=== PATIENT | male | born 1960 ===

== ENCOUNTER 2016-10-16 07:05 | Inpatient (IN) | payer MEDICAID ==
--- NOTE | 2016-10-16 08:32 | ED PDOC ---
Lower Extremity Pain/Injury Time Seen by Provider: 10/16/16 07:18 Chief Complaint (Nursing): Hip Pain Chief Complaint (Provider): Hip Pain History Per: Patient History/Exam Limitations: no limitations Onset/Duration Of Symptoms: Days Current Symptoms Are (Timing): Still Present Severity: Moderate Additional Complaint(s): Patient is a 56 year old male who presents to ED for left hip pain s/p fall 2 months ago. Patient reports taking diclofenac with mild relief. Pain is noted to be worse with ambulation. Denies any new injury. Past Medical History Reviewed: Historical Data, Nursing Documentation, Vital Signs Vital Signs: Last Vital Signs Temp 98.4 F 10/16/16 07:14 Pulse 95 H 10/16/16 07:14 Resp 16 10/16/16 07:14 BP 162/100 H 10/16/16 07:14 Pulse Ox 98 10/16/16 07:14 - Medical History PMH: HTN, Hypothyroidism - Surgical History Other surgeries: Bilateral knee - Family History Family History: States: No Known Family Hx - Living Arrangements Living Arrangements: With Family - Home Medications Home Medications: Ambulatory Orders Medication Instructions Recorded Levothyroxine [Synthroid] 125 mcg PO DAILY 10/16/16 Rosuvastatin Calcium [Crestor] 10 mg PO DAILY 10/16/16 Acetaminophen [Tylenol 325mg tab] 650 mg PO Q6 PRN tab 10/18/16 Aspirin [Ecotrin] 81 mg PO BID #60 tablet. 10/18/16 Docusate [Colace] 100 mg PO BID #30 cap 10/18/16 Ferrous Sulfate [Feosol] 325 mg PO DAILY #30 tab 10/18/16 oxyCODONE/Acetaminophen [Percocet 1 tab PO Q4 PRN #30 tab 10/18/16 5/325 mg Tab] - Allergies Allergies/Adverse Reactions: Allergies Allergy/AdvReac Type Severity Reaction Status Date / Time No Known Allergies Allergy Verified 10/16/16 07:17 Review of Systems ROS Statement: Except As Marked, All Systems Reviewed And Found Negative Constitutional: Negative for: Fever Respiratory: Negative for: Shortness of Breath Musculoskeletal: Positive for: Other ((+) left hip pain ). Negative for: Leg Pain, Foot Pain Neurological: Negative for: Weakness, Numbness Physical Exam - Reviewed Nursing Documentation Reviewed: Yes Vital Signs Reviewed: Yes - Physical Exam Appears: Positive for: Non-toxic, No Acute Distress Skin: Positive for: Normal Color, Warm Eye Exam: Positive for: Normal appearance Neck: Positive for: Normal, Painless ROM Cardiovascular/Chest: Positive for: Regular Rate, Rhythm. Negative for: Murmur Respiratory: Positive for: Normal Breath Sounds. Negative for: Respiratory Distress Extremity: Positive for: Capillary Refill (less than 2 seconds), Other ( Tenderness to left anterior lateral hip (+) decreased ROM secondary to pain. Neurovascularly intact ). Negative for: Deformity Neurologic/Psych: Positive for: Alert, Oriented - Laboratory Results Result Diagrams: 10/17/16 06:30 10/17/16 06:30 - ECG O2 Sat by Pulse Oximetry: 98 (RA) Pulse Ox Interpretation: Normal Medical Decision Making Medical Decision Making: Time: 0800 Initial impression: Hip injury r/o fracture Initial plan: -- CMP -- CBC -- PT/PTT -- Femur Xray and Hip Xray Scribe Attestation: Documented by Zahira Evans acting as a scribe for Gayle Diez MD MD Scribe Attestation: All medical record entries made by the Scribe were at my direction and personally dictated by me. I have reviewed the chart and agree that the record accurately reflects my personal performance of the history, physical exam, medical decision making, and the department course for this patient. I have also personally directed, reviewed, and agree with the discharge instructions and disposition. Disposition - Clinical Impression Clinical Impression: Hip pain - Patient ED Disposition Is Patient to be Admitted: Yes - Disposition Disposition Time: 09:26 Condition: STABLE - Pt Status Changed To: Hospital Disposition Of: Inpatient - Admit Certification Admit to Inpatient:: After my assessment, the patient will require hospitalization for at least two midnights. This is because of the severity of symptoms shown, intensity of services needed, and/or the medical risk in this patient being treated as an outpatient. - POA Present On Arrival: Falls Or Trauma
[2016-10-16 08:57] LABS: BASO # 0.1 K/uL (0.0-0.2); BASO % 0.8 % (0.0-2.0); EOS # 0.1 K/uL (0.0-0.7); EOS % 1.7 % (0.0-4.0); HEMATOCRIT 42.3 % (35.0-51.0); LYMPH # 1.7 K/uL (1.0-4.3); LYMPH % 20.2 % (20.0-40.0); MEAN CELL VOLUME 90.3 fl (80.0-94.0); MEAN CORPUSCULAR HEMOGLOBIN 30.6 pg (27.0-31.0); MEAN CORPUSCULAR HGB CONC 33.9 g/dL (33.0-37.0); MEAN PLATELET VOLUME 8.5 fl (7.2-11.7); MONO # 0.7 K/uL (0.0-0.8); NEUT # 5.8 K/uL (1.8-7.0); NEUT % 69.3 % (50.0-75.0); NRBC % 0.1 % (0.0-0.0); RED CELL DISTRIBUTION WIDTH 13.4 % (11.5-14.5); WHITE BLOOD COUNT 8.3 K/uL (4.8-10.8)
[2016-10-16 09:08] LABS: ALB/GLOB RATIO 1.6 (1.0-2.1); ALKALINE PHOSPHATASE 91 U/L (38-126); ALT/SGPT 60 U/L (21-72); AST/SGOT 32 U/L (17-59); BILIRUBIN,TOTAL 0.5 mg/dl (0.2-1.3); BLOOD UREA NITROGEN 19 mg/dl (9-20); CALCIUM 9.3 mg/dL (8.4-10.2); CARBON DIOXIDE 28 mmol/L (22-30); CHLORIDE 100 mmol/L (98-107); GFR AFRICAN-AMERICAN > 60; GLUCOSE,RANDOM 98 mg/dL (75-110); POTASSIUM 4.1 MMOL/L (3.6-5.0); SODIUM 140 mmol/l (132-148); TOTAL PROTEIN 7.5 G/DL (6.3-8.2)
--- NOTE | 2016-10-16 09:09 | CP.PCM.HP ---
History of Present Illness - History of Present Illness History of Present Illness: 56 y/o male with PMH HTN, dyslipidemia,hypothyroid presented to ER with intractable left hip pain. As per patient he has been suffering of progressive left hip pain for almost 1 year. He did experience a fall to that hip 1 month ago and since then the pain has gotten worse and today he could not ambulate because of the pain and decided to come to ER. He has had outpatient physical therapy and joint injection sin the past to that hip with minimal relief. Left hip Xray showed severe OA to left hip . denies any CP, SOB, palpitations. PND, orthopnea, urinary sx, changes in bowel movements, fever, chills, cough, nausea or vomiting . Allergies ; NKDA PMH; HTN, Hypothyroid, dyslipidemia Medications; See med rec Surgery : Bilateral knee surgeries and umbilical hernia repair Social history ; Lives in [facility] with [facility], does not work, ex smoker quit 15 years ago, does not drink or uses any drugs, has 3 steps going into the apartment, walking with no assist devices prioro family history ; None ROS ; 14 point review of all systems negative except for above PMD ; Code status : Full Present on Admission - Present on Admission Any Indicators Present on Admission: No Review of Systems - Review of Systems All systems: reviewed and no additional remarkable complaints except Past Patient History - Infectious Disease Hx of Infectious Diseases: None - Tetanus Immunizations Tetanus Immunization: Unknown - Past Medical History & Family History Past Medical History?: Yes Past Family History: Reviewed and not pertinent - Past Social History Smoking Status: Former Smoker Chewing Tobacco Use: No Cigar Use: No Alcohol: None Drugs: Denies Home Situation {Lives}: With Family Domestic Violence: Negative - CARDIAC Hx Hypertension: Yes - PULMONARY Hx Respiratory Disorders: No - NEUROLOGICAL Hx Neurological Disorder: No - HEENT Hx HEENT Problems: No - RENAL Hx Chronic Kidney Disease: No - ENDOCRINE/METABOLIC Hx Hypothyroidism: Yes - HEMATOLOGICAL/ONCOLOGICAL Hx Blood Disorders: No - INTEGUMENTARY Hx Dermatological Problems: No - MUSCULOSKELETAL/RHEUMATOLOGICAL Hx Osteoarthritis: Yes Hx Unsteady Gait: Yes - GASTROINTESTINAL Hx Gastrointestinal Disorders: No - PSYCHIATRIC Hx Psychophysiologic Disorder: No Hx Substance Use: No - SURGICAL HISTORY Hx Surgeries: Yes Hx Herniorrhaphy: Yes (abdominal hernia repair) Other/Comment: magdaleno knee SX - ANESTHESIA Hx Anesthesia: Yes Hx Anesthesia Reactions: No Meds Allergies/Adverse Reactions: Allergies Allergy/AdvReac Type Severity Reaction Status Date / Time No Known Allergies Allergy Verified 10/16/16 07:17 Physical Exam - Constitutional Appears: Non-toxic, No Acute Distress - Head Exam Head Exam: ATRAUMATIC, NORMAL INSPECTION, NORMOCEPHALIC - Eye Exam Eye Exam: EOMI, Normal appearance, PERRL Pupil Exam: NORMAL ACCOMODATION - ENT Exam ENT Exam: Mucous Membranes Moist - Neck Exam Neck exam: Positive for: Full Rom, Normal Inspection - Respiratory Exam Respiratory Exam: Clear to Auscultation Bilateral, NORMAL BREATHING PATTERN. absent: Rales, Rhonchi, Wheezes - Cardiovascular Exam Cardiovascular Exam: REGULAR RHYTHM, RRR, +S1, +S2. absent: JVD - GI/Abdominal Exam GI & Abdominal Exam: Normal Bowel Sounds, Soft. absent: Distended, Guarding, Rebound, Tenderness - Rectal Exam Rectal Exam: Deferred - Extremities Exam Extremities exam: Positive for: normal capillary refill, normal inspection, pedal edema (1 +), pedal pulses present. Negative for: calf tenderness Additional comments: left hip decreased ROM due to pain - Back Exam Back exam: NORMAL INSPECTION - Neurological Exam Neurological exam: Alert, CN II-XII Intact, Oriented x3, Reflexes Normal - Psychiatric Exam Psychiatric exam: Normal Affect, Normal Mood - Skin Skin Exam: Dry, Intact, Normal Color, Warm Results - Vital Signs Recent Vital Signs: Last Vital Signs Temp 98.4 F 10/16/16 07:14 Pulse 95 H 10/16/16 07:14 Resp 16 10/16/16 07:14 BP 162/100 H 10/16/16 07:14 Pulse Ox 98 10/16/16 08:35 - Labs Result Diagrams: 10/16/16 08:50 10/16/16 08:50 Labs: Laboratory Results - last 24 hr 10/16/16 08:50 WBC 8.3 RBC 4.68 Hgb 14.3 Hct 42.3 MCV 90.3 MCH 30.6 MCHC 33.9 RDW 13.4 Plt Count 167 MPV 8.5 Neut % (Auto) 69.3 Lymph % (Auto) 20.2 [place] % (Auto) 8.0 Eos % (Auto) 1.7 Baso % (Auto) 0.8 Neut # 5.8 Lymph # 1.7 [place] # 0.7 Eos # 0.1 Baso # 0.1 - EKG Data EKG shows normal: Sinus rhythm Rate: Normal - Imaging and Cardiology pelvis xray Additional comment: severe OA to left hip ( as read by me ) Assessment & Plan - Assessment and Plan (Free Text) Assessment: 56 y/o male with PMH HTN, dyslipidemia,hypothyroid presented to ER with intractable left hip pain. As per patient he has been suffering of progressive left hip pain for almost 1 year. He did experience a fall to that hip 1 month ago and since then the pain has gotten worse and today he could not ambulate because of the pain and decided to come to ER. He has had outpatient physical therapy and joint injection sin the past to that hip with minimal relief. Left hip Xray showed severe OA to left hip 1. Left hip osteoarthritis with intractable pain- unable to ambulate Admit patient to med-surg Ortho consult with Dr. Alvarenga EKG, CBC, CMP reviewed patient is low risk for surgical procedure Keep NPO for now ( last meal was yesterday 7 PM ) 2. HTN resume ho me meds controlled 3. Hypothyroidism on synthroid 4. Dyslipidemia on crestor 5. DVt Prophylaxis SCD for now
[2016-10-16 09:25] LABS: PARTIAL THROMBOPLASTIN TIME 26.8 SECONDS (23.3-32.5)
[2016-10-16 09:55] LABS: RBC URINE < 1 /hpf (0-3); URINE BILIRUBIN NEGATIVE (NEGATIVE); URINE BLOOD NEGATIVE (NEGATIVE); URINE COLOR STRAW (YELLOW); URINE GLUCOSE (UA) NEG (Normal); URINE KETONE NEGATIVE (NEGATIVE); URINE LEUKOCYTE ESTERASE NEG Leu/uL (Negative); URINE PROTEIN NEGATIVE (NEGATIVE); URINE UROBILINOGEN 0.2-1.0 mg/dL (0.2-1.0)
[2016-10-16] MEDS ORDERED: Propofol 10 mg/ml Inj (20 ML) ONE (10:00)
[2016-10-16] MEDS ORDERED: Midazolam 2 MG/2 ML VIAL ONE (10:01)
[2016-10-16] MEDS ORDERED: Morphine 1 mg/ml preservative-free Inj(Duramorph) ONE (10:01)
[2016-10-16] MEDS ORDERED: Lidocaine Hydrochloride 5 ML INJ ONE (10:01)
[2016-10-16] MEDS ORDERED: Rocuronium 10 mg/ml (5 ml) ONE ×3 (10:02→14:27)
[2016-10-16] MEDS ORDERED: Sodium Chloride 0.9% 1,000 ML IV SCH (10:15)
[2016-10-16] MEDS ORDERED: Lactated Ringer's 1,000 ML IV ONE ×4 (10:30→17:35)
[2016-10-16] MEDS ORDERED: ePHEDrine 50 mg/ml Inj ONE (10:35)
[2016-10-16] MEDS ORDERED: Succinylcholine 200 mg/10 ml Inj IV ONE (10:43)
--- NOTE | 2016-10-16 10:56 | RAD ---
PROCEDURE: Left femur dated 10/16/2016 HISTORY: Fall COMPARISON: Comparison made with concurrent radiographs of the pelvis and left hip TECHNIQUE: AP and lateral views of the left femur performed FINDINGS: Current study reveals deformity of the left humeral head likely which is flattened along its superior border associated with superior joint space narrowing and subchondral cystic changes and sclerosis. Similar changes noted along the acetabular margin as well. Collectively these findings probably represent avascular necrosis and secondary significant degenerative osteoarthritis. . No evidence of acute displaced fracture nor dislocation. IMPRESSION: Severe DJD left hip with deformity - flattening of the superior margin of the left femoral head. No evidence of acute displaced fracture nor dislocation.
--- NOTE | 2016-10-16 10:56 | RAD ---
HISTORY: for OR COMPARISON: No prior. FINDINGS: LUNGS: Poor inspiration with low lung volumes, mild crowded bronchovascular markings and mild bibasilar atelectasis. PLEURA: No significant pleural effusion identified, no pneumothorax apparent. CARDIOVASCULAR: Heart size upper limits of normal likely due to a combination of AP positioning (with magnification) and low lung volumes. OSSEOUS STRUCTURES: No significant abnormalities. VISUALIZED UPPER ABDOMEN: Normal. OTHER FINDINGS: None. IMPRESSION: Poor inspiration with low lung volumes, mild crowded bronchovascular markings and mild bibasilar atelectasis.
[2016-10-16] MEDS ORDERED: Sodium Chloride 0.9% 1,000 ML IV ONE (11:00)
--- NOTE | 2016-10-16 11:01 | RAD ---
PROCEDURE: Pelvis left hip 10/16/2016. HISTORY: Fall COMPARISON: Correlation made with concurrent radiographs of the left femur. FINDINGS: BONES: No evidence of acute displaced fracture nor dislocation. Re- demonstrated is deformity of the left femoral head which is flattened along its superior border associated with superior joint space narrowing and subchondral cystic changes/ sclerosis. Is similar on subchondral sclerosis and cystic changes noted along the acetabular margin as well. 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 JOINTS: As above. . The right femoral head is properly located. Arthritic changes right hip joint. SOFT TISSUES: Calcific densities overlying the pelvis likely represent calcified pelvic phleboliths. OTHER FINDINGS: Mild degenerative spondylosis of the lumbosacral spine. IMPRESSION: Deformity of the left femoral head which is flattened along its superior border associated with superior joint space narrowing and subchondral cystic changes/ sclerosis. Is similar on subchondral sclerosis and cystic changes noted along the acetabular margin as well. 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 . See above discussion for additional findings and details.
[2016-10-16] MEDS ORDERED: Sodium Chloride 0.9% 200 ML IV ONE (11:30)
[2016-10-16] MEDS ORDERED: SODIUM CHLORIDE 3,000 ML IR ONE (12:30)
[2016-10-16] MEDS ORDERED: Sodium Chloride 0.9% 500 ML IV ONE (13:00)
[2016-10-16] MEDS ORDERED: Neostigmine Methylsulfate 2 MG/2 ML ML IV ONE (13:49)
[2016-10-16] MEDS ORDERED: Neostigmine Methylsulfate 3mg/3ml Syringe IV ONE (13:49)
[2016-10-16] MEDS ORDERED: HYDROmorphone 0.5 mg/0.5 ml ISec IVP PRN (15:43)
[2016-10-16] MEDS: HYDROmorphone 0.5 mg/0.5 ml ISec IVP PRN ×3 (15:52→16:10)
--- NOTE | 2016-10-16 15:53 | RAD ---
PROCEDURE: Intraoperative Fluoroscopy. HISTORY: LEFT HIP FINDINGS: Fluoroscopic assistance was provided. 22.6 seconds of fluoroscopy time utilized during this procedure. Radiation dose = 4.97 mGy Please refer to the operative report for additional details
--- NOTE | 2016-10-16 16:33 | RAD ---
PROCEDURE: Left Hip X-ray Radiographs. HISTORY: s/p Left THR COMPARISON: None. FINDINGS: BONES: Normal. No fracture. Status post total left hip replacement in good anatomical position. JOINTS: Normal. SOFT TISSUES: Normal. OTHER FINDINGS: None. IMPRESSION: Status post left total hip replacement.
--- NOTE | 2016-10-16 16:56 | PCM.SURG1 ---
Surgeon's Initial Post Op Note - Surgeon's Notes Surgeon: Kumar Underwriting Specialist: IMTIAZ Bennett/ 2nd assist alla rosas Type of Anesthesia: General Endo, Spinal Anesthesia Administered By: Dr Noa Renteria Pre-Operative Diagnosis: Severe DJD/ OA L hip Operative Findings: Severe DJD/ OA Lhip. Subluxation l femoral head Post-Operative Diagnosis: as above Operation Performed: L THR- anterior approach. femoral neck osteotomy. arthrotomy/synovectomy. release iliopsoas tendon. autograft bone graft to acetabulum Specimen/Specimens Removed: femoral head/reamings Estimated Blood Loss: EBL {In ML}: 325 Blood Products Given: N/A Drains Used: No Drains Post-Op Condition: Good Date of Surgery/Procedure: 10/16/16 Time of Surgery/Procedure: 11:55 (time in room/anesthesia indcutioin time 10:30)
[2016-10-16] MEDS: ceFAZolin 1 GM in Sodium Chloride 0.9% 100 ML IVPB SCH (19:09)
[2016-10-17] MEDS: ceFAZolin 1 GM in Sodium Chloride 0.9% 100 ML IVPB SCH ×2 (01:13→09:43)
--- NOTE | 2016-10-17 04:51 | OP ---
PROCEDURE DATE: 10/16/2016 PREOPERATIVE DIAGNOSIS: Primary left hip osteoarthritis. POSTOPERATIVE DIAGNOSIS: Primary left hip osteoarthritis. PROCEDURES: 1. Left total hip replacement arthroplasty, anterior approach. 2. Left femoral neck osteotomy. 3. Arthrotomy and synovectomy, left hip. 4. Autogenous bone graft to the acetabulum. SURGEON: Arik Heath MD FILAMENT SHAPER: Nancy Dickson, Certified Registered Nursing. SECOND MONEY ROOM TELLER: Jefferson Jonse. ANESTHESIA: General endotracheal and spinal anesthesia by Dr. Renteria. SPECIMEN REMOVED: Femoral head synovium. BLOOD LOSS: Approximately 325 mL. BLOOD PRODUCTS: None given. DRAINS: None. POSTOPERATIVE CONDITION: Stable. OPERATIVE INDICATION: The patient is a 56-year-old gentleman, who is having severe left hip pain and restricted range of motion. The patient had sustained a fall several days ago. The patient present s to the Emergency Room at [facility] with evidence of a subluxed hip with ancelmo dence of questionable fracture. The patient was admitted. X-rays were obtained. It is determined t hat the patient has severe degenerative arthritis of the hip with leg length inequality, and evidence of subluxation of the femoral head with questionable fracture. The primary pathology was the degene rative disease of the hip, and there is no evidence for gross fracture. There is evidence for sublux ation. Pros, cons, risks, and benefits of total hip replacement were discussed. The patient exhibit s some mild leg length inequality, less left than right. The patient is admitted through the Emergen cy Room because of severe intractable pain and inability to ambulate. Fracture has been ruled out bu t the pathology is determined to be hip subluxation with severe degenerative arthritis. Pros, cons, risks and benefits of surgical approach are discussed with the patient and the possibility of mechani corina failure, infection, thromboembolic disease, recurrent or persistent leg length inequality, second jerome or tertiary surgery is discussed. Possibility of nerve injury is discussed. Possibility of disl ocation is discussed. The patient wishes the surgery to be accomplished after thorough discussion of the pros, cons, risks, and benefits. After having obtained informed consent in the above fashion, a fter having identified side, site, and procedure and a critical pause/timeout, after the satisfactory induction of the anesthetic by Dr. Renteria, spinal and general, the patient identified, is placed in the supine position with all bony prominences well-padded, the patient is placed in the [facility] ner for anterior approach total hip replacement arthroplasty. The anterior modified Hueter approach to the hip is employed. OPERATIVE PROCEDURE: After having obtained informed consent, after having identified side, site and procedure, and a critical pause/timeout, after the satisfactory induction of the anesthetic, the left lower extremity was placed in the traction device with the foot of the operating room table broken, all bony prominences were well padded. The [facility] positioner had been fashioned to the table. The ini tial incision, after sterilely prepping and draping, is described as 3 fingerbreadths posterior to th e ASIS and 1 fingerbreadth distally. Again, after having obtained informed consent, after having alberta ntified side, site and procedure, and a critical pause/timeout, after sterilely prepping, draping, un linda the surgeon's direction, the fluoroscope was positioned, video images are generated, therapeutic decisions are made there from. The hip is identified and the contralateral hip is identified. There is found to be evidence of a leg length inequality, left less than right, approximately 1/2 inch. T he skin incision is approximately 5 inches, 1 fingerbreadth distal to the ASIS, 5 fingerbreadths/cm, distal to that oblique, superficial to the tensor fascia femoris. This having been accomplished, the skin incision is carried down through the skin and subcutaneous tissue. The fascia is divided. The fascia of the tensor fascia femoris is carefully divided. The leading anterior edge is grasped usin g an Allis clamp and the tensor fascia femoris muscle is taken down from the fascia. The modified Guzman rojas-Renee retractor is placed in the fascia inferior to the rectus. Femoris is identified. The fa t pad is removed superiorly and this evidences the reflected head of rectus femoris. Reflected head of rectus femoris is released from the anterior inferior iliac spine carefully. Bleeding points are controlled with the Aquamantys. This having been accomplished, the fascia posterior to the rectus fe jo is identified. The Faby-Renee retractor is placed in a horizontal position and this having been accomplished, a portion of the distal aspect of the tensor fascia femoris is released as well. At this point in time, the fascia superficial to the hip capsule is carefully divided cell layer by c ell layer. The lateral femoral circumflex vessels are identified and the anterior branches identifie d as well. Hemostasis controlled with the Aquamantys. Also, the vessels are controlled with the ton sils and with suture ligature. At this point in time, the fat pad superficial to the capsule is exci sed and a triangular flap is elevated from the lateral aspect of the acetabulum with the hip internal ly rotated down to the area of the intertrochanteric line. The trochanteric tubercle was palpated an d a triangular flap is elevated, and at this point in time with the hip internally rotated, the entir e triangle is elevated and the area of the neck is identified. There is found to be abnormality to t he neck and this is burred with the bur. This having been accomplished, the Medacta retractors are p laced, and being cognizant of the leg length inequality, the neck cut is left a bit tall and a femora l neck osteotomy is accomplished taking great care to spare the greater trochanter. This having been accomplished, the head and neck are osteotomized and at this point in time, the traction is external rotated to 45 degrees. The cut femoral neck is exposed and the corkscrew is placed. This corkscrew is introduced and the femoral head is removed after 5 turns. Capsular attachments are released. Th is having been accomplished, the labrum is excised and the pulvinar is excised. Arthrotomy and synov ectomy are accomplished. At this point in time, the femoral neck osteotomy having been planned both preoperatively and intraoperatively and is found to be acceptable. This having been accomplished, th e femoral head is measured to approximately 50 mm. At this point in time, with exposure of the aceta bulum with the Charnley retractor, reaming is accomplished medially, posteriorly and in the direction of the cup at approximately 40 degrees of abduction and 10-15 degrees of anteversion. This having b een accomplished, reaming having been accomplished, trialing is accomplished and found to be acceptab le. The reamings are denuded of articular cartilage and are to be used as bone graft. The reamings having been denuded are safe for bone graft. Trialing is accomplished. Great care is taken to avoid injury to the femoral nerve, the contractures are released. Trialing is accomplished. The trial cu p is found to be in acceptable position. Reaming is carried out to 58 mm and approximately 45 degree s of abduction, 20 degrees of anteversion. The Medacta cup is impacted after autograft bone grafting is carried out to the acetabulum. The position is found to be excellent. Under the surgeon's direc tion, the fluoroscope was positioned, video images are generated, therapeutic decisions are made ther e from. The position of the stem is found to be excellent. The wound is thoroughly irrigated. With external rotation of the femur now, the pubofemoral ligament is released and at this point in time, the ischial femoral release is accomplished as well as release of the piriformis and the ischial femo ral ligament hemostasis controlled with the Aquamantys. The femur is exposed with external rotation. Using the pitchfork, the cut femoral neck is elevated and at this point in time, the bridge of bone between the neck and the trochanter is removed using the bur and the box chisel sequential. The corina lous found with the rasp and sequential broaching is carried out to a #5 broach. Broaching is accomp lished and the +3.5 head with the 58 mm outer bearing is reduced, found to be acceptable in all plane s. At this point in time, the hip is reduced, again, found to be stable to push-pull and with international broadcast music librarian al and external rotation. Trialing having been completed, the hip is again dislocated. The broach i s removed and the #5 Medacta femoral component is impacted and is left just a bit proud, again, with the +3.5 head and a 58 mm outer bearing. It should be noted that the contractures having been releas ed, the trialing having been completed, the definitive stem is impacted. The definitive ceramic head and 58 mm outer bearing. The hip is reduced and found to be stable in all planes. The wound is tho roughly irrigated. Again, now under the surgeon's direction, the fluoroscope was positioned, video i mages are generated, therapeutic decisions are made. The decision is that the hip is well positioned . This having been accomplished, closure is in layers with 0 Quill followed by 0 Quill, Vicryl, and panchito for skin. No Hemovac is necessary or employed. Hemostasis having been controlled prior to c losure with the Aquamantys. Arik Heath MD cc: [id number] TT: 10/17/2016 04:51:28 tn
[2016-10-17] MEDS: Levothyroxine 125 MCG TAB PO SCH (06:03)
[2016-10-17 07:34] LABS: HEMATOCRIT 30.5 % (35.0-51.0); MEAN CELL VOLUME 89.8 fl (80.0-94.0); MEAN CORPUSCULAR HEMOGLOBIN 30.7 pg (27.0-31.0); MEAN CORPUSCULAR HGB CONC 34.2 g/dL (33.0-37.0); RED CELL DISTRIBUTION WIDTH 13.4 % (11.5-14.5); WHITE BLOOD COUNT 9.5 K/uL (4.8-10.8)
[2016-10-17 07:47] LABS: BLOOD UREA NITROGEN 19 mg/dl (9-20); CALCIUM 7.8 mg/dL (8.4-10.2); CARBON DIOXIDE 27 mmol/L (22-30); CHLORIDE 99 mmol/L (98-107); GFR AFRICAN-AMERICAN > 60; GLUCOSE,RANDOM 124 mg/dL (75-110); POTASSIUM 4.3 MMOL/L (3.6-5.0); SODIUM 135 mmol/l (132-148)
--- NOTE | 2016-10-17 08:15 | CP.PCM.PN ---
Subjective - Date & Time of Evaluation Date of Evaluation: 10/17/16 Time of Evaluation: 08:00 - Subjective Subjective: S- pt with MINIMAL post op discomfort Objective - Vital Signs/Intake and Output Vital Signs (last 24 hours): Temp Pulse Resp BP Pulse Ox 98.4 F 96 H 20 116/77 99 10/17/16 04:59 10/17/16 04:59 10/17/16 04:59 10/17/16 04:59 10/17/16 04:59 - Medications Medications: Current Medications Acetaminophen (Tylenol 325mg Tab) 650 mg PO Q6 PRN PRN Reason: Fever >100.4 F Atorvastatin Calcium (Lipitor) 20 mg PO DAILY [facility] Docusate Sodium (Colace) 100 mg PO BID [facility] Last Admin: 10/16/16 18:27 Dose: 100 mg Enoxaparin Sodium (Lovenox) 40 mg SC DAILY [facility] PRN Reason: Protocol Hydromorphone HCl (Dilaudid) 1 mg IVP Q6 PRN PRN Reason: Pain, severe (8-10) Sodium Chloride (Sodium Chloride 0.9%) 1,000 mls @ 100 mls/hr IV .Q10H [facility] Cefazolin Sodium 1 gm/ Sodium (Chloride) 100 mls @ 100 mls/hr IVPB Q8 [facility] Stop: 10/17/16 09:59 Last Admin: 10/17/16 01:13 Dose: 100 mls/hr Ketorolac Tromethamine (Toradol) 30 mg IVP Q6 PRN PRN Reason: Pain, moderate (4-7) Last Admin: 10/17/16 06:09 Dose: 30 mg Levothyroxine Sodium (Synthroid) 125 mcg PO DAILY@0630 [facility] Last Admin: 10/17/16 06:03 Dose: 125 mcg Ondansetron HCl (Zofran Inj) 4 mg IVP Q6 PRN PRN Reason: Nausea/Vomiting Pantoprazole Sodium (Protonix Ec Tab) 40 mg PO DAILY [facility] Triamterene/HCTZ (Dyazide 25 Mg-37.5 Mg) 1 cap PO DAILY [facility] - Labs Labs: 10/17/16 06:30 10/17/16 06:30 PT 10.2 SECONDS (9.6-11.2) 10/16/16 08:50 INR 0.98 (0.92-1.08) 10/16/16 08:50 APTT 26.8 SECONDS (23.3-32.5) 10/16/16 08:50 - Skin Additional comments: Objective systemic- wnl pt with some difficulty voiding ( normal for man his age) remasinder of sytemic exam wnl Musculoskeletal stance/gait- defrred; minimal swelling N/V intact wound benign Xray- reveals excellent position of construct orthopedically stable Assessment and Plan - Assessment and Plan (Free Text) Assessment: A- s/p L THR- excellent post op result P- orthopedially stable for d/c home with home PT and social svc support
[2016-10-17] MEDS ORDERED: hydroCHLOROthiazide-Triamterene 25 mg-37.5 mg Cap UD PO SCH (09:00)
[2016-10-17] MEDS ORDERED: Sodium Chloride 0.9% 500 ML IV ONE ×2 (09:25→12:24)
[2016-10-17] MEDS: Enoxaparin 40 mg Syringe SC SCH (09:46)
[2016-10-17] MEDS: Pantoprazole 40 mg EC Tab PO SCH (09:46)
[2016-10-17] MEDS: Oxycodone/Acetaminophen 5/325 mg Tab PO PRN (11:00)
--- NOTE | 2016-10-17 12:10 | CP.PCM.PN ---
Subjective - Date & Time of Evaluation Date of Evaluation: 10/17/16 Time of Evaluation: 10:00 - Subjective Subjective: No fever Post op pain controlled Participated with PT and did well sl Dizzy after therapy- IVF hydration given no CP no SOB no abd pain Objective - Vital Signs/Intake and Output Vital Signs (last 24 hours): Temp Pulse Resp BP Pulse Ox 98.6 F 99 H 20 106/71 99 10/17/16 08:17 10/17/16 08:17 10/17/16 08:17 10/17/16 08:17 10/17/16 08:17 - Medications Medications: Current Medications Acetaminophen (Tylenol 325mg Tab) 650 mg PO Q6 PRN PRN Reason: Fever >100.4 F Atorvastatin Calcium (Lipitor) 20 mg PO DAILY [facility] Docusate Sodium (Colace) 100 mg PO BID [facility] Last Admin: 10/17/16 09:45 Dose: 100 mg Enoxaparin Sodium (Lovenox) 40 mg SC DAILY [facility] PRN Reason: Protocol Last Admin: 10/17/16 09:46 Dose: 40 mg Ferrous Sulfate (Feosol) 325 mg PO DAILY [facility] Last Admin: 10/17/16 09:48 Dose: 325 mg Hydromorphone HCl (Dilaudid) 1 mg IVP Q6 PRN PRN Reason: Pain, severe (8-10) Sodium Chloride (Sodium Chloride 0.9%) 1,000 mls @ 100 mls/hr IV .Q10H [facility] Ketorolac Tromethamine (Toradol) 30 mg IVP Q6 PRN PRN Reason: Pain, moderate (4-7) Last Admin: 10/17/16 06:09 Dose: 30 mg Levothyroxine Sodium (Synthroid) 125 mcg PO DAILY@0630 [facility] Last Admin: 10/17/16 06:03 Dose: 125 mcg Ondansetron HCl (Zofran Inj) 4 mg IVP Q6 PRN PRN Reason: Nausea/Vomiting Oxycodone/Acetaminophen (Percocet 5/325 Mg Tab) 1 tab PO Q4 PRN PRN Reason: Pain, moderate (4-7) Stop: 10/20/16 09:03 Last Admin: 10/17/16 11:00 Dose: 1 tab Pantoprazole Sodium (Protonix Ec Tab) 40 mg PO DAILY [facility] Last Admin: 10/17/16 09:46 Dose: 40 mg - Labs Labs: 10/17/16 06:30 10/17/16 06:30 PT 10.2 SECONDS (9.6-11.2) 10/16/16 08:50 INR 0.98 (0.92-1.08) 10/16/16 08:50 APTT 26.8 SECONDS (23.3-32.5) 10/16/16 08:50 - Constitutional Appears: No Acute Distress - Head Exam Head Exam: ATRAUMATIC, NORMAL INSPECTION, NORMOCEPHALIC - Eye Exam Eye Exam: EOMI, Normal appearance, PERRL Pupil Exam: NORMAL ACCOMODATION - ENT Exam ENT Exam: Mucous Membranes Moist, Normal External Ear Exam - Neck Exam Neck Exam: Full ROM. absent: Meningismus - Respiratory Exam Respiratory Exam: NORMAL BREATHING PATTERN. absent: Rales, Wheezes, Respiratory Distress - Cardiovascular Exam Cardiovascular Exam: REGULAR RHYTHM, +S1, +S2 - GI/Abdominal Exam GI & Abdominal Exam: Soft, Normal Bowel Sounds. absent: Tenderness - Extremities Exam Extremities Exam: Normal Capillary Refill. absent: Calf Tenderness Additional comments: left hip dressing intact/clean - Back Exam Back Exam: Full ROM. absent: CVA tenderness (L), CVA tenderness (R), paraspinal tenderness, vertebral tenderness - Neurological Exam Neurological Exam: Alert, Awake, CN II-XII Intact, Oriented x3 Neuro motor strength exam: Left Upper Extremity: 5, Right Upper Extremity: 5, Left Lower Extremity: 5, Right Lower Extremity: 5 - Psychiatric Exam Psychiatric exam: Normal Affect, Normal Mood - Skin Skin Exam: Dry, Normal Color, Warm Assessment and Plan - Assessment and Plan (Free Text) Assessment: 56 y/o male with PMH HTN, dyslipidemia,hypothyroid presented to ER with intractable left hip pain. As per patient he has been suffering of progressive left hip pain for almost 1 year. He did experience a fall to that hip 1 month ago and since then the pain has gotten worse and today he could not ambulate because of the pain and decided to come to ER. He has had outpatient physical therapy and joint injections in the past to that hip with minimal relief. Left hip Xray showed severe OA to left hip 1. Left hip Primary osteoarthritis with intractable pain s/p Left THR Ortho consult : Dr. Alvarenga Pain mgt - pain controlled, d/c Dilaudid CAL[employer] , start Percocet PT/OT consult 2. Post op Urinary Retention likely sec to anesthesia/Opiates Straight catheterization done this am 3. HTN controlled hold HCTZ 4. Hypothyroidism on synthroid 5. Dyslipidemia on crestor 6. DVt Prophylaxis Lovenox
[2016-10-18] MEDS: Oxycodone/Acetaminophen 5/325 mg Tab PO PRN (00:39)
[2016-10-18 00:42] VITALS: RESP 20
--- NOTE | 2016-10-18 07:21 | CP.PCM.DIS ---
Provider - Provider Date of Admission: 10/16/16 09:26 Attending physician: Sung Haider MD Consults: Ortho: Dr Heath Time Spent in preparation of Discharge (in minutes): 35 Diagnosis - Discharge Diagnosis (1) Primary osteoarthritis of left hip Status: Acute (2) Postoperative urinary retention Status: Acute (3) Postoperative anemia due to acute blood loss Status: Acute (4) Hypothyroidism Status: Chronic (5) DVT prophylaxis Status: Acute (6) Hyperlipidemia Status: Chronic (7) HTN (hypertension) Status: Acute Hospital Course - Lab Results Lab Results: Most Recent Lab Values WBC 9.5 K/uL (4.8-10.8) 10/17/16 06:30 RBC 3.39 Mil/uL (4.40-5.90) L 10/17/16 06:30 Hgb 10.4 g/dL (12.0-18.0) L D 10/17/16 06:30 Hct 30.5 % (35.0-51.0) L 10/17/16 06:30 MCV 89.8 fl (80.0-94.0) 10/17/16 06:30 MCH 30.7 pg (27.0-31.0) 10/17/16 06:30 MCHC 34.2 g/dL (33.0-37.0) 10/17/16 06:30 RDW 13.4 % (11.5-14.5) 10/17/16 06:30 Plt Count 151 K/uL (130-400) 10/17/16 06:30 MPV 8.5 fl (7.2-11.7) 10/16/16 08:50 Neut % (Auto) 69.3 % (50.0-75.0) 10/16/16 08:50 Lymph % (Auto) 20.2 % (20.0-40.0) 10/16/16 08:50 [place] % (Auto) 8.0 % (0.0-10.0) 10/16/16 08:50 Eos % (Auto) 1.7 % (0.0-4.0) 10/16/16 08:50 Baso % (Auto) 0.8 % (0.0-2.0) 10/16/16 08:50 Neut # 5.8 K/uL (1.8-7.0) 10/16/16 08:50 Lymph # 1.7 K/uL (1.0-4.3) 10/16/16 08:50 [place] # 0.7 K/uL (0.0-0.8) 10/16/16 08:50 Eos # 0.1 K/uL (0.0-0.7) 10/16/16 08:50 Baso # 0.1 K/uL (0.0-0.2) 10/16/16 08:50 PT 10.2 SECONDS (9.6-11.2) 10/16/16 08:50 INR 0.98 (0.92-1.08) 10/16/16 08:50 APTT 26.8 SECONDS (23.3-32.5) 10/16/16 08:50 Sodium 135 mmol/l (132-148) 10/17/16 06:30 Potassium 4.3 MMOL/L (3.6-5.0) 10/17/16 06:30 Chloride 99 mmol/L (98-107) 10/17/16 06:30 Carbon Dioxide 27 mmol/L (22-30) 10/17/16 06:30 Anion Gap 13 (10-20) 10/17/16 06:30 BUN 19 mg/dl (9-20) 10/17/16 06:30 Creatinine 1.1 mg/dL (0.8-1.5) 10/17/16 06:30 Est GFR ( Amer) > 60 10/17/16 06:30 Est GFR (Non-Af Amer) > 60 10/17/16 06:30 POC Glucose (mg/dL) 102 mg/dL (65-110) 10/16/16 08:46 Random Glucose 124 mg/dL (75-110) H 10/17/16 06:30 Calcium 7.8 mg/dL (8.4-10.2) L 10/17/16 06:30 Total Bilirubin 0.5 mg/dl (0.2-1.3) 10/16/16 08:50 AST 32 U/L (17-59) 10/16/16 08:50 ALT 60 U/L (21-72) 10/16/16 08:50 Alkaline Phosphatase 91 U/L (38-126) 10/16/16 08:50 Total Protein 7.5 G/DL (6.3-8.2) 10/16/16 08:50 Albumin 4.7 g/dL (3.5-5.0) 10/16/16 08:50 Globulin 2.9 gm/dL (2.2-3.9) 10/16/16 08:50 Albumin/Globulin Ratio 1.6 (1.0-2.1) 10/16/16 08:50 Urine Color Straw (YELLOW) 10/16/16 09:31 Urine Clarity Clear (Clear) 10/16/16 09: Urine pH 8.0 (5.0-8.0) 10/16/16 09: Ur Specific [place] 1.010 (1.003-1.030) 10/16/16: Urine Protein Negative mg/dL (NEGATIVE) 10/16/16: Urine Glucose (UA) Neg mg/dL (Normal) 10/16/16: Urine Ketones Negative mg/dL (NEGATIVE) 10/16/16: Urine Blood Negative (NEGATIVE) 10/16/16 09: Urine Nitrate Negative (NEGATIVE) 10/16/16: Urine Bilirubin Negative (NEGATIVE) 10/16/16: Urine Urobilinogen 0.2-1.0 mg/dL (0.2-1.0) 10/16/16 09:31 Ur Leukocyte Esterase Neg Andie/uL (Negative) 10/16/16: Urine RBC (Auto) < 1 /hpf (0-3) 10/16/16 09:31 Blood Type O POSITIVE 10/16/16:29 Blood Type Confirm O POSITIVE 10/16/16 08:50 Antibody Screen Negative 10/16/16:29 Crossmatch See Detail 10/16/16:29 BBK History Checked No verified bt 10/16/16 - Hospital Course Hospital Course: 56 y/o male with PMH HTN, dyslipidemia,hypothyroid presented to ER with intractable left hip pain. As per patient he has been suffering of progressive left hip pain for almost 1 year. He did experience a fall to that hip 1 month ago and since then the pain has gotten worse and today he could not ambulate because of the pain and decided to come to ER. He has had outpatient physical therapy and joint injections in the past to that hip with minimal relief. Left hip Xray showed severe OA to left hip. Ortho consulted - pt then underwent Left THR done by DR Heath. Post op - PT/OT consulted. Patient is doing well post op - ambulates to the bathroom with crutches - cleared for d/c home . 1. Left hip Primary osteoarthritis with intractable pain s/p Left THR Ortho consult : Dr. Alvarenga - Left THR done Pain mgt - pain controlled, d/c Dilaudid [employer] , started Percocet PT/OT consulted - rec Home PT 2. Post op Urinary Retention likely sec to anesthesia/Opiates Straight catheterization done , now voiding freely 3. Mild acute blood loss anemia post op Pt is hemodynamically stable Ferrous sulfate daily 4. HTN controlled hold HCTZ for njow 5. Hypothyroidism on synthroid 6. Dyslipidemia on crestor DVt Prophylaxis Lovenox Discharge Exam - Head Exam Head Exam: ATRAUMATIC, NORMAL INSPECTION, NORMOCEPHALIC - Eye Exam Eye Exam: EOMI, Normal appearance, PERRL Pupil Exam: NORMAL ACCOMODATION - ENT Exam ENT Exam: Mucous Membranes Moist, Normal External Ear Exam - Neck Exam Neck exam: Full Rom - Respiratory Exam Respiratory Exam: NORMAL BREATHING PATTERN. absent: Respiratory Distress - Cardiovascular Exam Cardiovascular Exam: REGULAR RHYTHM, +S1, +S2 - GI/Abdominal Exam GI & Abdominal Exam: Normal Bowel Sounds, Soft. absent: Tenderness - Extremities Exam Extremities exam: normal capillary refill, pedal pulses present Additional comments: no calf tenderness - Back Exam Back exam: FULL ROM, NORMAL INSPECTION. absent: CVA tenderness (L), CVA tenderness (R), paraspinal tenderness - Neurological Exam Neurological exam: Alert, CN II-XII Intact, Oriented x3, Reflexes Normal - Psychiatric Exam Psychiatric exam: Normal Affect, Normal Mood - Skin Skin Exam: Dry, Normal Color, Warm Discharge Plan - Discharge Medications Prescriptions: Aspirin [Ecotrin] 81 mg PO BID #60 tablet. Docusate [Colace] 100 mg PO BID #30 cap Ferrous Sulfate [Feosol] 325 mg PO DAILY #30 tab oxyCODONE/Acetaminophen [Percocet 5/325 mg Tab] 1 tab PO Q4 PRN #30 tab PRN Reason: Pain, Moderate (4-7) - Follow Up Plan Condition: GOOD Disposition: HOME/ ROUTINE Instructions: Precautions after Total Joint Replacement Surgery (GEN) Additional Instructions: ff up with Dr Heath in 1 wk appt with PMD naresh Referrals: Arik Heath III, MD [Staff Provider] -
[2016-10-18] MEDS: Levothyroxine 125 MCG TAB PO SCH (07:30)
[2016-10-18 07:35] VITALS: BP 116/72; PULSE 99; TEMP 99.2
[2016-10-18] MEDS: Pantoprazole 40 mg EC Tab PO SCH (09:12)
[2016-10-18] MEDS: Enoxaparin 40 mg Syringe SC SCH (09:12)
--- NOTE | 2016-10-18 11:17 | CP.PCM.PN ---
Subjective - Date & Time of Evaluation Date of Evaluation: 10/18/16 Time of Evaluation: 11:15 - Subjective Subjective: S- pt with no discomfort/doing extremely well with physio Objective - Vital Signs/Intake and Output Vital Signs (last 24 hours): Temp Pulse Resp BP Pulse Ox 99.2 F 99 H 20 116/72 97 10/18/16 07:34 10/18/16 07:34 10/18/16 07:34 10/18/16 07:34 10/18/16 07:34 - Medications Medications: Current Medications Acetaminophen (Tylenol 325mg Tab) 650 mg PO Q6 PRN PRN Reason: Fever >100.4 F Last Admin: 10/17/16 21:44 Dose: 650 mg Atorvastatin Calcium (Lipitor) 20 mg PO DAILY [facility] Last Admin: 10/18/16 09:18 Dose: Not Given Docusate Sodium (Colace) 100 mg PO BID [facility] Last Admin: 10/18/16 09:12 Dose: 100 mg Enoxaparin Sodium (Lovenox) 40 mg SC DAILY [facility] PRN Reason: Protocol Last Admin: 10/18/16 09:12 Dose: 40 mg Ferrous Sulfate (Feosol) 325 mg PO DAILY [facility] Last Admin: 10/18/16 09:12 Dose: 325 mg Hydromorphone HCl (Dilaudid) 1 mg IVP Q6 PRN PRN Reason: Pain, severe (8-10) Sodium Chloride (Sodium Chloride 0.9%) 1,000 mls @ 100 mls/hr IV .Q10H [facility] Last Admin: 10/17/16 17:53 Dose: 100 mls/hr Ketorolac Tromethamine (Toradol) 30 mg IVP Q6 PRN PRN Reason: Pain, moderate (4-7) Last Admin: 10/17/16 06:09 Dose: 30 mg Levothyroxine Sodium (Synthroid) 125 mcg PO DAILY@0630 [facility] Last Admin: 10/18/16 07:30 Dose: 125 mcg Ondansetron HCl (Zofran Inj) 4 mg IVP Q6 PRN PRN Reason: Nausea/Vomiting Oxycodone/Acetaminophen (Percocet 5/325 Mg Tab) 1 tab PO Q4 PRN PRN Reason: Pain, moderate (4-7) Stop: 10/20/16 09:03 Last Admin: 10/18/16 00:39 Dose: 1 tab Pantoprazole Sodium (Protonix Ec Tab) 40 mg PO DAILY [facility] Last Admin: 10/18/16 09:12 Dose: 40 mg - Labs Labs: 10/17/16 06:30 10/17/16 06:30 PT 10.2 SECONDS (9.6-11.2) 10/16/16 08:50 INR 0.98 (0.92-1.08) 10/16/16 08:50 APTT 26.8 SECONDS (23.3-32.5) 10/16/16 08:50 - Additional Findings Additional findings: Objective systemic wnl Musculoskekltal pt OOB and comfortable L hip wound benign N/V intact no gross/progressive deficits Xrays- reveal excellent position of construct Assessment and Plan - Assessment and Plan (Free Text) Assessment: A- s/p L THR P D/C home today antithromboembolic prophylaxis as per Hospitalisty orthopedically stable for d/c - weight bearing to tolerance
[2016-10-19 12:24] VITALS: O2SAT 98
--- NOTE | 2016-10-20 14:10 | CARD ---
APPROVED REPORT EKG Measurement Heart [id number] <Conclusion> Normal sinus rhythm Normal ECG
== END 2016-10-18 11:53 | disposition home or self-care (01) | DRG 818 ==
LOC: H.ER 07:05 → H.ERHOLD 09:26 → H.MEDSURG1 17:43
PROVIDERS: ADMIT Hospitalist; ATTEND Hospitalist
PROC: 0SNB0ZZ Release Left Hip Joint, Open Approach (ICD-10-PCS; 2016-10-16)
PROC: 0SRB03Z Replacement of Left Hip Joint with Ceramic Synthetic Substitute, Open Approach (ICD-10-PCS; principal; 2016-10-16 12:00)
DX: M16.12 Unilateral primary osteoarthritis, left hip (principal); I10 Essential (primary) hypertension; D62 Acute posthemorrhagic anemia; N99.89 Other postprocedural complications and disorders of genitourinary system; E03.9 Hypothyroidism, unspecified; E78.5 Hyperlipidemia, unspecified; M21.752 Unequal limb length (acquired), left femur; R33.8 Other retention of urine; M24.552 Contracture, left hip